=== PATIENT | female | born 1955 | race Caucasian/White ===

== ENCOUNTER 2020-07-21 08:43 | Inpatient (IN) ==
[2020-07-21] MEDS ORDERED: *HR* HYDROcodone/Acet 5/325 mg TABLET PO PRN (10:52)
[2020-07-21] MEDS ORDERED: Melatonin 3 MG TABLET PO PRN (10:52)
[2020-07-21] MEDS ORDERED: Acetaminophen 325 MG TABLET PO PRN (10:52)
[2020-07-21] MEDS ORDERED: Naloxone 0.4 MG/ML INJ IVP PRN (10:52)
[2020-07-21] MEDS ORDERED: Ondansetron 4 MG/2 ML VIAL IVP PRN (10:52)
[2020-07-21] MEDS ORDERED: Gadolinium Contrast Agent (WT Based) IV PRN (10:56)
[2020-07-21] MEDS ORDERED: Dextrose Gel 15 GM/37.5 ML TUBE PO PRN ×2 (11:05)
[2020-07-21] MEDS ORDERED: *HR* Dextrose 50 % in Water (Vial) 50 ML VIAL IVP PRN (11:05)
[2020-07-21] MEDS ORDERED: D5% in Water 1,000 ML IVC PRN (11:05)
[2020-07-21] MEDS: Insulin LISPRO 300 UNITS/3 ML VIAL SUBQ SCH ×2 (14:44→17:12)
[2020-07-21 15:10] LABS: Basophils # 0.1 K/mcL (0.0-0.2); Basophils % 1.1 %; Eosinophils # 0.2 K/mcL (0.0-0.6); Eosinophils % 3.2 %; Hematocrit 42.1 % (35.3-44.9); Hemoglobin 13.3 g/dL (11.5-15.4); Immature Granulocytes % 0.6 % (0-4); Lymphocytes # 2.3 K/mcL (0.6-4.6); Lymphocytes % 33.2 %; Mean Corpuscular HGB Conc 31.6 g/dL (31.6-35.5); Mean Corpuscular Hemoglobin 28.7 pg (28.0-33.3); Mean Corpuscular Volume 90.7 fL (83.0-100.0); Monocytes # 0.6 K/mcL (0.0-1.3); Monocytes % 9.2 %; Neutrophils # 3.7 K/mcL (1.6-8.9); Platelet Count 251 K/mcL (140-400); Red Blood Count 4.64 M/mcL (3.82-4.97); Red Cell Distribution Width 18.2 % (11.5-14.5); Segmented Neutrophils % 52.7 %
[2020-07-21 15:31] LABS: Alanine Aminotransferase 24 Units/L (7-52); Albumin 3.7 g/dL (3.5-5.7); Albumin/Globulin Ratio 1.3 (1.1-2.2); Alkaline Phosphatase 224 Units/L (34-104); Aspartate Amino Transferase 24 Units/L (13-39); BUN/Creatinine Ratio 19 (6-26); Bilirubin,Total 0.5 mg/dL (0.3-1.0); Blood Urea Nitrogen 15 mg/dL (8-23); Carbon Dioxide 26 mEq/L (23-29); Chloride 107 mEq/L (98-107); Globulin 2.8 g/dL (2.4-3.5); Glucose 158 mg/dL (70-105); Magnesium 1.8 mg/dL (1.6-2.6); Osmolality,Calculated 290 (280-300); Phosphorous 3.5 mg/dL (2.7-4.5); Potassium 3.9 mEq/L (3.5-5.1); Sodium 138 mEq/L (136-145); Total Protein 6.5 g/dL (6.4-8.9); eGFR For African Americans > 60 (> 60); eGFR For Non-African Americans > 60 (> 60)
[2020-07-21 15:46] LABS: Thyroid Stimulating Hormone 2.399 mcIU/mL (0.340-5.600)
[2020-07-21 15:53] LABS: Triiodothyronine (T3) Total 0.93 ng/mL (0.87-1.78)
[2020-07-21 15:55] LABS: Folate 7.7 ng/mL (3.0-16.0)
[2020-07-21 16:18] LABS: Platelet Estimate Normal (Normal)
[2020-07-21 16:20] LABS: Reactive Lymphocytes Present (Not Present)
[2020-07-21 16:21] LABS: Anisocytosis 1+ (Not Present)
[2020-07-21] MEDS ORDERED: *HR* LORazepam 2 MG/ML VIAL IVP ONE (17:34)
[2020-07-21 18:13] LABS: Estimated Average Glucose 174 mg/dl; Hemoglobin A1C 7.7 %
[2020-07-21] MEDS: *HR* OxyCODONE Immed Rel 5 MG TABLET PO PRN (20:57)
[2020-07-21] MEDS: clonazePAM 0.5 MG TABLET PO PRN (20:57)
[2020-07-21] MEDS: Pregabalin 75 MG CAPSULE PO SCH (22:25)
[2020-07-22 01:33] LABS: Hemoglobin 12.8 g/dL (11.5-15.4); Mean Corpuscular Hemoglobin 28.5 pg (28.0-33.3); Mean Corpuscular Volume 89.1 fL (83.0-100.0); Mean Platelet Volume 11.6 fL (9.4-12.4); Platelet Count 266 K/mcL (140-400); Red Blood Count 4.49 M/mcL (3.82-4.97); White Blood Count 6.5 K/mcL (4.3-11.1)
[2020-07-22 01:51] LABS: Calcium 8.8 mg/dL (8.6-10.3); Magnesium 1.8 mg/dL (1.6-2.6); Phosphorous 4.4 mg/dL (2.7-4.5); Potassium 4.3 mEq/L (3.5-5.1)
[2020-07-22] MEDS: *HR* OxyCODONE Immed Rel 5 MG TABLET PO PRN (03:00)
[2020-07-22] MEDS ORDERED: *HR* Enoxaparin 40 MG/0.4 ML SYRINGE SQ SCH (06:00)
[2020-07-22] MEDS: Pregabalin 75 MG CAPSULE PO SCH ×2 (08:12→21:19)
[2020-07-22] MEDS: Insulin LISPRO 300 UNITS/3 ML VIAL SUBQ SCH ×3 (08:13→18:34)
[2020-07-22 13:31] LABS: Red Blood Cell,CSF < 2000 RBC/mcL
[2020-07-22 13:57] LABS: Glucose,CSF 80 mg/dL (40-70); Total Protein,CSF 33 mg/dL (15-45)
[2020-07-22] MEDS: clonazePAM 0.5 MG TABLET PO PRN (14:08)
[2020-07-22 14:58] LABS: Appearance,CSF Clear (Clear)
[2020-07-23 03:25] LABS: Hematocrit 40.9 % (35.3-44.9); Hemoglobin 13.3 g/dL (11.5-15.4); Mean Corpuscular HGB Conc 32.5 g/dL (31.6-35.5); Mean Corpuscular Hemoglobin 28.9 pg (28.0-33.3); Mean Corpuscular Volume 88.7 fL (83.0-100.0); Mean Platelet Volume 10.9 fL (9.4-12.4); Platelet Count 244 K/mcL (140-400); Red Blood Count 4.61 M/mcL (3.82-4.97); Red Cell Distribution Width 17.8 % (11.5-14.5); White Blood Count 6.6 K/mcL (4.3-11.1)
[2020-07-23] MEDS: clonazePAM 0.5 MG TABLET PO PRN (03:35)
[2020-07-23 03:37] LABS: BUN/Creatinine Ratio 30 (6-26); Blood Urea Nitrogen 24 mg/dL (8-23); Calcium 8.8 mg/dL (8.6-10.3); Carbon Dioxide 24 mEq/L (23-29); Chloride 106 mEq/L (98-107); Glucose 141 mg/dL (70-105); Osmolality,Calculated 290 (280-300); Potassium 3.9 mEq/L (3.5-5.1); Sodium 137 mEq/L (136-145); eGFR For African Americans > 60 (> 60); eGFR For Non-African Americans > 60 (> 60)
[2020-07-23] MEDS ORDERED: *HR* Heparin 5,000 UNIT/ML VIAL SQ SCH (06:00)
[2020-07-23] MEDS: Insulin LISPRO 300 UNITS/3 ML VIAL SUBQ SCH ×2 (08:41→13:15)
[2020-07-23] MEDS: Pregabalin 75 MG CAPSULE PO SCH (08:41)
[2020-07-23] MEDS ORDERED: Cyanocobalamin (B-12) 1,000 MCG TABLET PO SCH (11:30)
[2020-07-23 11:57] VITALS: BP 137/83
[2020-07-24 09:33] LABS: Anti-Streptolysin O Antibody 181 IU/mL (0-330)
[2020-07-24 09:39] LABS: ANA IgG by ELISA NONE DETECTED (None Detected)
== END 2020-07-23 14:47 | disposition home or self-care (01) | DRG 92 ==
LOC: 3NENU → SUATTDRO 07-22 13:18
PROVIDERS: ADMIT Internal Medicine; ATTEND Internal Medicine